=== PATIENT | female | born 1930 ===

== ENCOUNTER 2017-08-17 11:39 | Emergency (ER) | payer OTHER ==
--- NOTE | 2017-08-17 12:24 | C.PDOC ---
History Of Present Illness 87 y/o female with past medical history of poor memory and hypertension presents to the ED for evaluation of left heel pain and redness. Denies taking any medications. Denies fever or any further medical complaints. PMD: Kelly Arvizu MD Time Seen by Provider: 08/17/17 12:13 Chief Complaint (Nursing): Abnormal Skin Integrity History Per: Patient History/Exam Limitations: no limitations Past Medical History Reviewed: Historical Data, Nursing Documentation, Vital Signs Vital Signs: Last Vital Signs Temp Pulse Resp 18 08/17/17 12:55 BP Pulse Ox - Medical History PMH: HTN, Hypercholesterolemia Surgical History: No Surg Hx Family History: States: Unknown Family Hx - Social History Hx Tobacco Use: Yes Hx Alcohol Use: No Hx Substance Use: No - Immunization History Hx Tetanus Toxoid Vaccination: No Hx Influenza Vaccination: No Review Of Systems Except As Marked, All Systems Reviewed And Found Negative. (As per HPI, otherwise negative) Constitutional: Negative for: Fever Skin: Positive for: Other (Left heel pain and redness) Physical Exam - Physical Exam Appears: Well, No Acute Distress Skin: Normal Color, Warm, Dry, Other (On left heel, skin peeling and erythema is observed) Head: Atraumatic, Normacephalic Chest: Symmetrical, No Deformity Cardiovascular: Rhythm Regular, No Murmur Respiratory: Normal Breath Sounds, No Accessory Muscle Use Gastrointestinal/Abdominal: Normal Exam Back: Normal Inspection Extremity: Normal ROM, No Deformity Neurological/Psych: Oriented x3 Medical Decision Making Medical Decision Making: Time: 12:34 Initial Impression: Left heel cellulitis Plan: Motrin 600mg PO Scribe Attestation: Documented by Jordi Casas acting as a scribe for Misael Urban MD. Scribe Attestation: All medical record entries made by the Scribe were at my direction and personally dictated by me. I have reviewed the chart and agree that the record accurately reflects my personal performance of the history, physical exam, medical decision making, and the department course for this patient. I have also personally directed, reviewed, and agree with the discharge instructions and disposition. Disposition - Disposition Referrals: Podiatry Clinic [Outside] Disposition: HOME/ ROUTINE Disposition Time: 12:21 Condition: STABLE Additional Instructions: Juvenal, thank you for letting us take care of you today. Return to the ER if your symptoms worsen. Take the medication listed below as prescribed. Please follow up with the foot doctor (Podiatry Clinic). Call the phone number listed below to make an appointment. Prescriptions: Cephalexin [Keflex] 1 tab PO QID #40 capsule Instructions: Cellulitis (ED) Forms: [facility] (Khmer), Gen Discharge Inst Khmer Print Language: CHINESE - Clinical Impression Clinical Impression: Cellulitis of heel, left
[2017-08-17 12:56] VITALS: RESP 18
== END 2017-08-17 12:54 | disposition home or self-care (01) ==
LOC: C.ER 11:39
DX: L03.116 Cellulitis of left lower limb (principal)